=== PATIENT | male | born 1975 | race Caucasian/White ===

== ENCOUNTER 2016-07-26 16:22 | Emergency (ER) | payer SELFPAY ==
[~2016-07-26] VITALS: Ht 160 cm; Wt 77.1 kg
[2016-07-26 16:26] VITALS: BP 136/101; PULSE 122; RESP 20; TEMP 98.1; O2SAT 100
--- NOTE | 2016-07-26 16:33 | NUR ---
Pt placed to ER bed 03 and to gown. EKG done in triage room. Pt report given to DAMI Freeman.
--- NOTE | 2016-07-26 16:40 | NUR ---
C/O 9/10 LLQ pain which started at the grocery store as left chest pain. CP was non-radiating, afterwards he developed the abd pain. Last BM today felt constipated prior to BM.
[2016-07-26] MEDS ORDERED: ASPIRIN 81 MG TAB.CHEW PO ONE (16:45)
--- NOTE | 2016-07-26 16:50 | NUR ---
ER Dr. Li at bedside examining patient.
[2016-07-26 16:59] LABS: BILIRUBIN,URINE NEGATIVE (NEGATIVE); BLOOD, URINE NEGATIVE (NEGATIVE); CLARITY/URINE CLEAR (CLEAR); COLOR,URINE YELLOW (YELLOW); GLUCOSE,URINE 3+ (NEGATIVE); KETONES,URINE 1+ (NEGATIVE); LEUKOCYTE ESTERASE ,URINE NEGATIVE (NEGATIVE); NITRITE, URINE NEGATIVE (NEGATIVE); PROTEIN URINE NEGATIVE (NEGATIVE); UROBILINOGEN,URINE 0.2 (0.2-1.0)
[2016-07-26 17:01] LABS: BASOPHILS % (AUTO) 0.3 % (0.0-2.0); EOSINOPHILS # (AUTO) 0.1 K/uL (0.0-0.4); EOSINOPHILS % (AUTO) 0.6 % (0.0-4.0); HEMATOCRIT 52.1 % (36-54); HEMOGLOBIN 18.1 g/dL (14.0-18.0); LYMPHOCYTES # (AUTO) 1.7 K/uL (1.0-5.5); MEAN CORPUSCULAR HEMOGLOBIN 30 pg (27-31); MEAN CORPUSCULAR HGB CONC 35 % (32-36); MEAN CORPUSCULAR VOLUME 88 fL (79.0-98.0); MONOCYTES # (AUTO) 0.5 K/uL (0.0-1.0); MONOCYTES % (AUTO) 4.5 % (1.7-9.3); NEUTROPHILS # (AUTO) 9.1 K/uL (1.8-7.7); NEUTROPHILS % (AUTO) 79.6 % (40.0-70.0); PLATELET COUNT (AUTO) 253 K/uL (130-430); RED BLOOD CELL COUNT(AUTO) 5.95 MIL/uL (4.2-6.2); RED CELL DISTRIBUTION WIDTH 11.3 % (9.0-15.0); WHITE BLOOD COUNT (AUTO) 11.4 K/uL (4.8-10.8)
[2016-07-26 17:19] LABS: CALCIUM 9.4 mg/dL (8.4-11.0); CREATININE 0.83 mg/dL (0.55-1.30); POTASSIUM 4.2 mmol/L (3.5-5.1)
[2016-07-26 17:21] LABS: AMYLASE 40 U/L (0-100); LIPASE 197 U/L (73-393)
[2016-07-26 17:24] LABS: ALBUMIN 4.4 g/dL (3.4-4.8); TOTAL BILIRUBIN 0.9 mg/dL (0.0-1.0); TOTAL PROTEIN, SERUM 8.5 g/dL (6.4-8.3)
[2016-07-26 17:38] LABS: BACTERIA,URINE RARE /HPF (None Seen); RBC,URINE 0-3 /HPF (0-3); WBC,URINE 0-3 /HPF (0-3)
[2016-07-26 17:39] LABS: MUCUS,URINE None Seen /LPF (None Seen)
--- NOTE | 2016-07-26 17:46 | NUR ---
Patient states that he takes no medication at home.
--- NOTE | 2016-07-26 17:47 | NUR ---
Patient is at rest in bed with 7/10 pain which he states is tolerable. He wants to know what is wrong not have pain medication.
[2016-07-26 18:27] LABS: METHAMPHETAMINES SCREEN,URINE POSITIVE (NEG <=500)
[2016-07-26 18:28] LABS: BARBITURATE, URINE NEGATIVE (NEG <=200); BENZODIAZEPINE, URINE NEGATIVE (NEG <=150); CANNABINOID, URINE NEGATIVE (NEG <=50); COCAINE, URINE NEGATIVE (NEG <=150); OPIATE, URINE NEGATIVE (NEG <=100); PHENCYCLIDINE SCREEN,URINE NEGATIVE (NEG <=25); UR TRICYCLIC ANTIDEPRESSANTS NEGATIVE (NEG <=300); URINE AMPHETAMINE POSITIVE (NEG <=500); URINE METHADONE NEGATIVE (NEG <=200); URINE OXYCODONE SCREEN NEGATIVE (NEG <=100); URINE PROPOXYPHENE SCREEN NEGATIVE (NEG <=300)
[2016-07-26 18:30] VITALS: BP 132/98; PULSE 105; RESP 20; TEMP 97.9; O2SAT 100
--- NOTE | 2016-07-26 18:30 | NUR ---
Patient given written and verbal discharge instructions and verbalizes understanding. ER MD discussed with patient the results and treatment provided. Patient in stable condition. ID arm band removed. IV catheter removed intact and dressing applied, no active bleeding. Patient educated on pain management and to follow up with PMD. Pain Scale 0/10. Opportunity for questions provided and answered.
[2016-07-26] MEDS ORDERED: NACL 0.9% 1,000 ML IV ONE (19:00)
== END 2016-07-26 18:30 | disposition home or self-care (01) ==
LOC: SED 16:25
DX: R73.9 Hyperglycemia, unspecified (principal); F15.10 Other stimulant abuse, uncomplicated
CPT/HCPCS: 36415; 71010; 74176; 80053; 80307; 81000; 82150; 83690; 83880; 84484; 85025; 85610; 85730; 93005; 99285; G0482; J7030

== ENCOUNTER 2020-07-31 22:17 | Emergency (ER) | payer SELFPAY ==
[~2020-07-31] VITALS: Ht 165.1 cm; Wt 59.0 kg
[2020-07-31 22:25] VITALS: BP_SYST 162
[2020-07-31] MEDS ORDERED: NACL 0.9% 1,000 ML IV ONE (22:45)
[2020-07-31 23:27] LABS: EOSINOPHILS # (AUTO) 0.1 K/uL (0.0-0.4); LYMPHOCYTES # (AUTO) 2.3 K/uL (1.0-5.5)
[2020-07-31 23:32] LABS: BASOPHILS # (AUTO) 0.1 K/uL (0.0-0.2); BASOPHILS % (AUTO) 0.6 % (0.0-2.0); EOSINOPHILS % (AUTO) 0.6 % (0.0-4.0); HEMATOCRIT 49.4 % (36-54); LYMPHOCYTES % (AUTO) 22.1 % (20.5-51.5); MEAN CORPUSCULAR HEMOGLOBIN 31 pg (27-31); MEAN CORPUSCULAR HGB CONC 35 % (32-36); MEAN CORPUSCULAR VOLUME 91 fL (79.0-98.0); MONOCYTES # (AUTO) 0.6 K/uL (0.0-1.0); NEUTROPHILS # (AUTO) 7.3 K/uL (1.8-7.7); NEUTROPHILS % (AUTO) 70.7 % (40.0-70.0); PLATELET COUNT (AUTO) 300 K/uL (130-430); RED BLOOD CELL COUNT(AUTO) 5.45 MIL/uL (4.2-6.2); RED CELL DISTRIBUTION WIDTH 12.3 % (9.0-15.0); WHITE BLOOD COUNT (AUTO) 10.4 K/uL (4.8-10.8)
[2020-07-31 23:34] LABS: CALCIUM 9.8 mg/dL (8.4-11.0); CREATININE 0.96 mg/dL (0.55-1.30); POTASSIUM 3.9 mmol/L (3.5-5.1)
[2020-07-31 23:41] LABS: ALBUMIN 3.9 g/dL (3.4-4.8); TOTAL BILIRUBIN 0.7 mg/dL (0.0-1.0)
[2020-07-31 23:49] LABS: LIPASE 116 U/L (73-393)
[2020-07-31 23:50] LABS: ALCOHOL, BLOOD < 3 mg/dL (<10)
[2020-08-01 00:19] LABS: BILIRUBIN,URINE NEGATIVE (NEGATIVE); BLOOD, URINE 2+ (NEGATIVE); CLARITY/URINE SL CLOUDY (CLEAR); COLOR,URINE YELLOW (YELLOW); GLUCOSE,URINE 3+ (NEGATIVE); KETONES,URINE TRACE (NEGATIVE); LEUKOCYTE ESTERASE ,URINE NEGATIVE (NEGATIVE); NITRITE, URINE NEGATIVE (NEGATIVE); PROTEIN URINE 2+ (NEGATIVE); UROBILINOGEN,URINE 0.2 (0.2-1.0)
[2020-08-01 00:22] LABS: BACTERIA,URINE FEW /HPF (None Seen); METHAMPHETAMINES SCREEN,URINE POSITIVE (NEG <=500); WBC,URINE 0-3 /HPF (0-3)
[2020-08-01 00:23] LABS: BARBITURATE, URINE NEGATIVE (NEG <=200); BENZODIAZEPINE, URINE NEGATIVE (NEG <=150); CANNABINOID, URINE NEGATIVE (NEG <=50); COCAINE, URINE NEGATIVE (NEG <=150); OPIATE, URINE NEGATIVE (NEG <=100); PHENCYCLIDINE SCREEN,URINE NEGATIVE (NEG <=25); UR TRICYCLIC ANTIDEPRESSANTS NEGATIVE (NEG <=300); URINE AMPHETAMINE POSITIVE (NEG <=500); URINE METHADONE NEGATIVE (NEG <=200); URINE OXYCODONE SCREEN NEGATIVE (NEG <=100); URINE PROPOXYPHENE SCREEN NEGATIVE (NEG <=300)
[2020-08-01] MEDS ORDERED: ASPIRIN 325 MG TABLET ONE (02:12)
[2020-08-01] MEDS ORDERED: NITROGLYCERIN 0.4 MG TAB.SUBL SL ONE (02:15)
[2020-08-01] MEDS ORDERED: ASPIRIN 325 MG TABLET PO ONE (02:15)
[2020-08-01] MEDS ORDERED: MORPHINE 4 MG INJ. 4 MG/ML VIAL IVP ONE (02:30)
[2020-08-01] MEDS ORDERED: MORPHINE 4 MG INJ. 4 MG/ML VIAL ONE (02:32)
[2020-08-01 03:00] VITALS: BP_SYST 129
== END 2020-08-01 02:55 | disposition short-term general hospital (02) ==
LOC: SED 22:17
DX: I24.9 Acute ischemic heart disease, unspecified (principal); F15.10 Other stimulant abuse, uncomplicated; F17.200 Nicotine dependence, unspecified, uncomplicated; Z20.822 Contact with and (suspected) exposure to COVID-19
CPT/HCPCS: 80307; 80053; 81000; 82550; 82962; 83690; 85025; 84484; 36415; 93005 ×2; 71045; 99291; 96361; 96374; 87426; G0482; J2270; J7030

== ENCOUNTER 2020-08-08 22:18 | Emergency (ER) | payer MEDICAID, SELFPAY ==
[~2020-08-08] VITALS: Ht 149.9 cm; Wt 55.3 kg
[2020-08-08 22:33] VITALS: BP_SYST 148
[2020-08-09] MEDS ORDERED: ASPIRIN 325 MG TABLET (ECOTRIN) PO ONE (00:10)
[2020-08-09] MEDS ORDERED: ASPIRIN 325 MG TABLET PO ONE (00:15)
[2020-08-09 00:19] LABS: BASOPHILS # (AUTO) 0.1 K/uL (0.0-0.2); BASOPHILS % (AUTO) 0.6 % (0.0-2.0); EOSINOPHILS # (AUTO) 0.1 K/uL (0.0-0.4); EOSINOPHILS % (AUTO) 0.5 % (0.0-4.0); HEMATOCRIT 48.7 % (36-54); HEMOGLOBIN 16.7 g/dL (14.0-18.0); LYMPHOCYTES # (AUTO) 2.1 K/uL (1.0-5.5); LYMPHOCYTES % (AUTO) 19.6 % (20.5-51.5); MEAN CORPUSCULAR HEMOGLOBIN 31 pg (27-31); MEAN CORPUSCULAR HGB CONC 34 % (32-36); MEAN CORPUSCULAR VOLUME 91 fL (79.0-98.0); MONOCYTES # (AUTO) 0.7 K/uL (0.0-1.0); MONOCYTES % (AUTO) 6.1 % (1.7-9.3); NEUTROPHILS # (AUTO) 7.8 K/uL (1.8-7.7); NEUTROPHILS % (AUTO) 73.2 % (40.0-70.0); PLATELET COUNT (AUTO) 329 K/uL (130-430); RED BLOOD CELL COUNT(AUTO) 5.37 MIL/uL (4.2-6.2); RED CELL DISTRIBUTION WIDTH 12.5 % (9.0-15.0); WHITE BLOOD COUNT (AUTO) 10.7 K/uL (4.8-10.8)
[2020-08-09] MEDS ORDERED: ASPIRIN 325 MG TABLET ONE (00:19)
[2020-08-09 00:33] LABS: ANION GAP 5 (5-15); CALCIUM 9.9 mg/dL (8.4-11.0); CHLORIDE 97 mmol/L (98-107); CREATININE 0.94 mg/dL (0.55-1.30); GLUCOSE 333 mg/dL (70-99); POTASSIUM 4.2 mmol/L (3.5-5.1); SODIUM SERUM 133 mmol/L (136-145); UREA NITROGEN, BLOOD 14 mg/dL (8-21)
[2020-08-09 00:34] LABS: GFR AFRICAN AMERICAN 112 mL/min (>90)
[2020-08-09 00:35] LABS: INR 0.9 (0.80-1.20); PROTHROMBIN TIME 9.7 SECS (9.5-12.5)
[2020-08-09 00:40] LABS: ALANINE AMINOTRANSFERASE 33 U/L (12-78); ALCOHOL, BLOOD < 3 mg/dL (<10); ASPARTATE AMINOTRANSFERASE 17 U/L (10-37); TOTAL BILIRUBIN 0.7 mg/dL (0.0-1.0)
[2020-08-09] MEDS ORDERED: NACL 0.9% 1,000 ML IV ONE (02:15)
[2020-08-09 03:10] VITALS: BP_SYST 136
== END 2020-08-09 03:20 | disposition left against medical advice (07) ==
LOC: SED 22:18
DX: Z53.29 Procedure and treatment not carried out because of patient's decision for other reasons (principal); E11.9 Type 2 diabetes mellitus without complications; F15.90 Other stimulant use, unspecified, uncomplicated
CPT/HCPCS: 36415; 71045; 80053; 82550; 83880; 84484; 85025; 85379; 85610; 93005; 96360; 99285; G0482; J7030